=== PATIENT | female | born 1995 | race African-American/Black ===

== ENCOUNTER 2023-05-08 10:48 | Observation (INO) | payer OTHER, MEDICAID, SELFPAY ==
[2023-05-08 11:07] VITALS: BP 128/67; PULSE 91
[2023-05-08 11:57] VITALS: BP 114/59; PULSE 85
[2023-05-08 12:22] LABS: Bilirubin Urine NEGATIVE (NEGATIVE); Blood Urine NEGATIVE (NEGATIVE); Clarity Urine CLEAR (CLEAR); Color Urine YELLOW (YELLOW); Glucose Urine UA NEGATIVE (NEGATIVE); Ketones Urine NEGATIVE (NEGATIVE); Leukocyte Esterase Urine TRACE (NEGATIVE); Nitrite Urine NEGATIVE (NEGATIVE); Protein Urine NEGATIVE (NEG/TRACE); Urobilinogen Urine 0.2 EU/dL (0.2-1.0); pH Urine 5.5 (5.0-9.0)
[2023-05-08 12:25] LABS: Urine Microscopic Indicated YES
[2023-05-08 12:31] LABS: Bacteria Urine NONE SEEN #/HPF (NONE SEEN); RBC Urine NONE SEEN #/HPF (0-2); WBC Urine 0-2 #/HPF (NONE SEEN)
[2023-05-08 12:32] LABS: Mucus Urine SMALL (NONE SEEN); Squamous Epithelial Cell Urine FEW #/LPF (NONE/RARE); Urine Culture Indicated NO
== END 2023-05-08 12:45 | disposition home or self-care (01) ==
PROVIDERS: Admitting Provider Obstetrics & Gynecology; Visit Provider Obstetrics & Gynecology
DX: O16.9 Unspecified maternal hypertension, unspecified trimester (principal); Z3A.00 Weeks of gestation of pregnancy not specified
CPT/HCPCS: 59025; 81001; G0378; G0379

== ENCOUNTER 2023-06-22 21:16 | Observation (INO) | payer MEDICAID, SELFPAY ==
--- OUTSIDE RECORDS SUMMARY | 2023-06-22 21:20 | XMS_ITS | CCD ---
Author Name Unknown Address [address] [place] [address] Organization [facility] Care Team Providers Care Bagman/Woman Name Role Phone FRANCO ., DR TILLMAN Admitting Unavailabl e FRANCO ., DR TILLMAN Attending Unavailabl e FRANCO ., DR TILLMAN Consulting Unavailabl gemma RUBI, DR ROXANN Thakkar Consulting Unavailable JAY JAY BERNSTEIN Attending Unavailable NANETTE GELLER Primary Care Unavailable REJI GELLERERIE Admitting Unavailable Teri Warren MD Primary Care Provider [phone] REJI GELLERERIE Chucky Attending Unavailable FLORO NANETTE Chucky Referring Unavailable FLORO NANETTE L Attending Unavailable FLORO NANETTE L Attending Unavailable FLORO NANETTE L Attending Unavailable FLORO NANETTE L Attending Unavailable FLORO NANETTE L Attending Unavailable FLORO NANETTE L Attending Unavailable Allergies Allergy Classification Reported Allergen(s) Allergy Type Date of Onset Reaction(s) Facility (1 source) CAT DANDER; Translations: [CAT DANDER] Propensity to adverse reactions to drug (disorder) 4 [facility] (1 source) OTHER; Translations: [OTHER] Propensity to adverse reactions (disorder) 8 [facility] Medications Current Medications Medication Drug Class(es) Dates Sig (Normalized) Sig (Original) cephalexin 500 mg oral capsule (1 source) Cephalosporin Antibacterial Start: 05-20-2023 take 1 capsule by mouth in the morning cephalexin (Keflex) 500 MG capsule Indications: Acute cystitis with hematuria Take 1 capsule (500 mg) by mouth in the morning and 1 capsule (500 mg) before bedtime. 14 capsule 0 05/20/2023 Active docusate sodium 100 mg oral capsule (1 source) Start: 03-15-2023 End: 06-13-2023 take 1 capsule by mouth once in the morning docusate sodium (Colace) 100 MG capsule Indications: Encounter for supervision of other normal , second trimester Take 1 capsule (100 mg) by mouth in the morning and 1 capsule (100 mg) before bedtime. 60 capsule 2 03/15/2023 06/13/2023 Active ferrous sulfate 325 mg oral tablet (1 source) Start: 04-16-2023 End: 08-14-2023 take 1 tablet by mouth in the morning ferrous sulfate (FerrouSul) 325 (65 Fe) MG tablet Indications: Iron deficiency Take 1 tablet (325 mg) by mouth in the morning and 1 tablet (325 mg) before bedtime. 60 tablet 3 04/16/2023 08/14/2023 Active Vit-Fe Fumarate-FA ( Plus/Iron) 27-1 MG tablet (1 source) Start: 12-14-2022 End: 12-14-2023 take 1 tablet by mouth in the morning Vit-Fe Fumarate-FA ( Plus/Iron) 27-1 MG tablet Indications: 10 weeks gestation of Take 1 tablet by mouth in the morning. 30 tablet 0 12/14/2022 12/14/2023 Active Problems Problem Classification Problem Date Documented Da te Episodic/Chronic Menstrual disorders (4 sources) Irregular menstruation, unspecified; Translations: [IRREGULAR MENSTRUATION UNSPECIFIED] Onset: 07-12-2022 Chronic Results Test Name Value Interpretation Reference Range Facil ity URINALYSISon 05-20-2023 Bilirubin Ql (U) Negative Normal NEG [facility] Comment on above: Performed By: #### U A #### [facility] ([id number]) [address] [place] [address] BLOOD/HGB SMALL Abnormal NEG [facility] Comment on above: Performed By: #### U A #### [facility] ([id number]) [address] [place] [address] 23281 Color (U) YELLOW Normal YELLOW [facility] Comment on above: Performed By: #### U A #### [facility] ([id number]) [address] [place] [address] [place] [address] Glucose Ql (U) Negative Normal NEG [facility] Comment on above: Performed By: #### U A #### [facility] ([id number]) [address] [place] [address] [place] [address] Ketones Ql (U) Negative Normal NEG [facility] Comment on above: Performed By: #### U A #### [facility] ([id number]) [address] [place] [address] [place] [address] Leukocyte esterase Test strip Ql (U) SMALL Abnormal NEG [facility] Comment on above: Performed By: #### U A #### [facility] ([id number]) [address] [place] [address] Nitrite Ql (U) Negative Normal NEG [facility] Comment on above: Performed By: #### U A #### [facility] ([id number]) [address] [place] [address] 08001 pH (U) 7.0 [pH] Normal 5.0-8.5 [facility] Comment on above: Performed By: #### U A #### [facility] ([id number]) [address] [place] [address] [place] [address] Protein Ql (U) Negative Normal NEG [facility] Comment on above: Performed By: #### U A #### [facility] ([id number]) [address] [place] [address], [place] [address] R.B.CELLS 0 /hpf Normal 0-5 [facility] Comment on above: Performed By: #### U A #### [facility] ([id number]) [address] [place] [address] [place] [address] Specific gravity (U) [Rel density] 1.010 Normal 1.003-1.035 [facility] Comment on above: Performed By: #### U A #### [facility] ([id number]) [address] [place] [address]752 SQUAMOUS EPITHELIUM 3 /hpf Normal 0-5 [facility] Comment on above: Performed By: #### U A #### [facility] ([id number]) [address] [place] [address] TURBIDITY CLEAR Normal CLEAR [facility] Comment on above: Performed By: #### U A #### [facility] ([id number]) [address] [place] [address] 69288 Urobilinogen Qn (U) 0.2 {Blanca'U}/dL Normal <1.1 [facility] Comment on above: Performed By: #### U A #### [facility] ([id number]) [address] [place] [address]159 W.B.CELLS 1 /hpf Normal 0-5 [facility] Comment on above: Performed By: #### U A #### [facility] ([id number]) [address] [place] [address] 97757 URINE CULTUREon 05-20-2023 Bacteria identified Cx Nom (U) SPECIMEN NOTES URINE RECEIVED WITHOUT PRESERVATIVE CULTURE RESULTS 10-50,000 ORGANISMS/mL NORMAL UROGENITAL BROCK URINE RECEIVED WITHOUT PRESERVATIVE-DELAYS IN TRANSPORT MAY AFFECT RESULTS.INTERPRET WITH CAUTION AND CLINICAL CORRELATION IS RECOMMENDED. Normal [facility] Comment on above: Performed By: #### 6 30-4 #### [facility] ([id number]) [address], [address] [place] [address] US OB FOLLOW UP TRANSABDOMIN AL APPROACHon 05-03-2023 US OB FOLLOW UP TRANSABDOMINAL APPROACH FINDINGS: Single live intrauterine heart rate 153 bpm. Cephalic position. Grade 1 posterior placenta. Cervical length 4.3 cm. DIANA 14.56 cm. Estimated sonographic gestational age 30 weeks, 2 days. Gestational age by dates 30 weeks, 2 days. Estimated sonographic date of delivery July 10, 2023. Estimated weight 1549 g (36.7% by LMP percentile). BPD 7.60 cm. HC 27.78 cm. AC 26.10 cm. FL 5.78 cm. IMPRESSION: Impression: Single live intrauterine with estimated sonographic gestational age 30 weeks, 2 days. Estimated weight 1549 g. ELECTRONICALLY SIGNED BY: Jj Rodriguez MD Normal Not Available US PELVIS AND TRANSVAGon US PELVIS AND TRANSVAG EXAMINATION: US PELVIS AND TRANSVAG HISTORY: Intermenstrual bleeding - irregular COMPARISON: No relevant comparison available. TECHNIQUE: Transabdominal and transvaginal sonographic examination. FINDINGS: UTERUS: Normal size and appearance. Uterus size: 6.6 x 3.5 x 4.5 cm ENDOMETRIUM: Normal homogeneous appearance. Endometrial thickness: 4 mm RIGHT OVARY: Normal size and appearance. Duplex Doppler demonstrates normal waveform and flow; resistive index 0.7. Ovary size: 2.6 x 1.4 x 4.1 cm LEFT OVARY: Normal size and appearance. Duplex Doppler demonstrates normal waveform and flow; resistive index 0.6. Ovary size: 3.8 x 1.9 x 1.7 cm CUL-DE-SAC: Unremarkable. No significant free fluid. BLADDER: Unremarkable. OTHER: None. IMPRESSION: 1. Normal pelvic ultrasound. No specific findings to account for patient's symptoms. Electronically authenticated by: ROXANN RUBI Date: 2022-07-12 11:04 Normal [facility] Encounters Encounter Date Encounter Type Care Provider Facility Start: 06-14-2023 End: 06-15-2023 ambulatory NANETTE L FLORO Not Available Start: 06-07-2023 End: 06-08-2023 ambulatory NANETTE L FLORO Not Available Start: 06-07-2023 Bamboo flowsheet Nanette L Adonay ro CN Work Phone: [facility] Start: 06-07-2023 Bamboo flowsheet Nanette L Adonay ro CN Work Phone: [facility] Start: 05-31-2023 End: 06-01-2023 ambulatory NANETTE L FLORO Not Available Start: 05-20-2023 End: 05-20-2023 ambulatory JAY JAY Vázquez SAVTORI [facility] Start: 05-17-2023 End: 05-18-2023 ambulatory NANETTE Locke FLORO Not Available Start: 05-03-2023 End: 05-04-2023 ambulatory NANETTE L FLORO Not Available Start: 04-12-2023 End: 04-13-2023 ambulatory NANETTE L FLORO Not Available Start: 03-15-2023 End: 03-16-2023 ambulatory NANETTE L FLORO Not Available Start: 07-12-2022 End: 07-13-[address] LAYNE GAMEZ . Facility: Payers Date Payer Category Payer Medicaid [id number] 2022 Medicaid [employer] BCBS [facility] AN[employer] BCBS [place]ICA[place] [id number] 2022-Present [address] [place] [address] [id number] 2021 Private Health Insurance [id number] 2021 Private Health Insurance [facility] [id number] 2021-Present [address] [address] [place] [address] [id number]. [id number] 1996 Unknown [id number] 2.16.840.1.837956.3.579.2. 593 1996 Unknown [id number] 2.16.840.1.919709.3.579.2. 1286 1996 Unknown [id number] 2.16.840.1.873881.3.579.2. 1259 1996 Unknown [id number] 2.16.840.1.962503.3.579.2. 1259 1996 Unknown [id number] 2.16.840.1.464478.3.579.2. 1259 1996 Unknown [id number] 2.16.840.1.282166.3.579.2. 1259 1996 Unknown [id number] 2.16.840.1.493382.3.579.2. 1259 1996 Unknown [id number] 2.16.840.1.109084.3.579.2. 1259 1996 Unknown [id number] 2.16.840.1.614739.3.579.2. 1259 1996 Unknown [id number] 2.16.840.1.281025.3.579.2. 1259 Social History Date Type Detail Facility [facility]: [facility] Start: 11-21-2022 Tobacco use and exposure Smokeless t obacco non-user [facility] Start: 11-22-2022 Alcohol intake Lifetime non-d hardeep (finding) [facility] Start: 11-22-2022 History of Social function [facility] Start: 11-22-2022 Tobacco use panel [facility] Start: 10-17-2022 [facility] Start: 1996 Sex Assigned At Female [facility] Start: 11-20-2022 Gender identity Identifies as female gender (finding) [facility] Start: 11-20-2022 Sexual orientation Heterosexual (fin ding) [facility] Summary Purpose Family History No Family History Records FoundNo Family History Records FoundNo Family History Records Found Advance Directives No Advanced Directives Records FoundNo Advanced Directives Records FoundNo Advanced Directives Records Found Additional Source Comments INFORMATION SOURCE (unrecogn ized section and content) DATE CREATED AUTHOR 07/17/[address] [facility] DATE CREATED AUTHOR AUTHOR'S ORGANIZ ATION 05/22/2023 [facility] DATE CREATED AUTHOR AUTHOR'S ORGANIZ ATION 06/18/2023 [facility] Special[facility] EPIC Care Teams (unrecognized sec tion and content) Bagman/Woman Relationship Specialty Start Date End Date Teri Warren MD [address] [place] [address], [address] PCP - General Internal Medicine 04/12/23 FOR RECORDS PERTAINING TO PATIENTS WHO ARE OR HAVE BEEN ENROLLED IN A CHEMICAL DEPENDENCY/SUBSTANCEABUSE PROGRAM, SOME INFORMATION MAY BE OMITTED. This clinical summary was aggregated from multiple sources. Caution should be exercised in using it in the provision of clinical care. This summary normalizes information from multiple sources, and as a consequence, information in this document may materially change the coding, format and clinical context of patient data. In addition, data may be omitted in some cases. CLINICAL DECISIONS SHOULD BE BASED ON THE PRIMARY CLINICAL RECORDS. [facility]. provides no warranty or guarantee of the accuracy or completeness of information in this document.
[2023-06-22 21:58] LABS: Bilirubin Urine NEGATIVE (NEGATIVE); Blood Urine TRACE-I (NEGATIVE); Clarity Urine CLEAR (CLEAR); Color Urine LT. YELLOW (YELLOW); Glucose Urine UA NEGATIVE (NEGATIVE); Ketones Urine TRACE mg/dL (NEGATIVE); Leukocyte Esterase Urine MODERATE (NEGATIVE); Nitrite Urine NEGATIVE (NEGATIVE); Protein Urine TRACE mg/dL (NEG/TRACE); Specific Gravity Urine >=1.030 (1.005-1.025); pH Urine 5.5 (5.0-9.0)
[2023-06-22 22:03] LABS: Urine Microscopic Indicated YES
[2023-06-22 22:04] VITALS: TEMP 36.3
[2023-06-22 22:05] VITALS: BP 134/65; PULSE 88
[2023-06-22 22:05] LABS: Amnisure NEGATIVE (NEGATIVE)
[2023-06-22 22:08] LABS: Bacteria Urine TRACE #/HPF (NONE SEEN); Cast Seen? NONE SEEN #/LPF (NONE SEEN); Crystals Seen? None Seen #/HPF (None Seen); Mucus Urine TRACE (NONE SEEN); RBC Urine 0-2 #/HPF (0-2); Squamous Epithelial Cell Urine FEW #/LPF (NONE/RARE)
== END 2023-06-22 23:55 | disposition home or self-care (01) ==
PROVIDERS: Midwife; Admitting Provider Obstetrics & Gynecology; Visit Provider Obstetrics & Gynecology
DX: Z03.71 Encounter for suspected problem with amniotic cavity and membrane ruled out (principal); Z3A.37 37 weeks gestation of pregnancy
CPT/HCPCS: 59025; 81001; 84112; G0378; G0379

== ENCOUNTER 2023-06-26 21:16 | Inpatient (IN) | payer MEDICAID, SELFPAY ==
--- OUTSIDE RECORDS SUMMARY | 2023-06-26 21:20 | XMS_ITS | CCD ---
Author Name Unknown Address [address] [place] [address] Organization [facility] Care Team Providers Care Forestry Instructor Name Role Phone FRANCO ., DR TILLMAN Admitting Unavailabl e FRANCO ., DR TILLMAN Attending Unavailabl e FRANCO ., DR TILLMAN Consulting Unavailabl e ELICIA, DR ROXANN Thakkar Consulting Unavailable JAY JAY BERNSTEIN Attending Unavailable FLORO NANETTE Primary Care Unavailable ADELINAO NANETTE Admitting Unavailable Teri Warren MD Primary Care Provider ADELINAO NANETTE Chucky Attending Unavailable FLORO NANETTE L Referring Unavailable FLORO NANETTE L Attending Unavailable FLORO, NANETTE L Attending Unavailable FLORO, NANETTE L Attending Unavailable FLORO, NANETTE L Attending Unavailable FLORO, NANETTE L Attending Unavailable FLORO, NANETTE L Attending Unavailable FLORO, NANETTE L Attending Unavailable Allergies Allergy Classification [...] 05-20-2023 Bilirubin Ql (U) Negative Normal NEG [facility] Comment on above: Performed By: #### U A #### [facility] ([id number]) [address] [place] [address] BLOOD/HGB SMALL Abnormal NEG [facility] Comment on above: Performed By: #### U A #### [facility] ([id number]) [address] [place] [address]372 Color (U) YELLOW Normal YELLOW [facility] Comment on above: Performed By: #### U A #### [facility] ([id number]) [address] [place] [address] [place] [address] Glucose Ql (U) Negative Normal NEG [facility] Comment on above: Performed By: #### U A #### [facility] ([id number]) [address] [place] [address]13[address] Ketones Ql (U) Negative Normal NEG [facility] Comment on above: Performed By: #### U A #### [facility] ([id number]) [address] [place] [address] [place] [address] Leukocyte esterase Test strip Ql (U) SMALL Abnormal NEG [facility] Comment on above: Performed By: #### U A #### [facility] ([id number]) [address] [place] [address] Nitrite Ql (U) Negative Normal NEG [facility] Comment on above: Performed By: #### U A #### [facility] ([id number]) [address] [place] [address] 91392 pH (U) 7.0 [pH] Normal 5.0-8.5 [facility] Comment on above: Performed By: #### U A #### [facility] ([id number]) [address] [place] [address] Protein Ql (U) Negative Normal NEG [facility] Comment on above: Performed By: #### U A #### [facility] ([id number]) [address] [place] [address] [place] [address] R.B.CELLS 0 /hpf Normal 0-5 [facility] Comment on above: Performed By: #### U A #### [facility] ([id number]) [address] [place] [address] Specific gravity (U) [Rel density] 1.010 Normal 1.003-1.035 [facility] Comment on above: Performed By: #### U A #### [facility] ([id number]) [address] [place] [address] SQUAMOUS EPITHELIUM 3 /hpf Normal 0-5 [facility] Comment on above: Performed By: #### U A #### [facility] ([id number]) [address] [place] [address] TURBIDITY CLEAR Normal CLEAR [facility] Comment on above: Performed By: #### U A #### [facility] ([id number]) [address] [place] [address]35 Urobilinogen Qn (U) 0.2 {Blanca'U}/dL Normal <1.1 [facility] Comment on above: Performed By: #### U A #### [facility] ([id number]) [address] [place] [address] W.B.CELLS 1 /hpf Normal 0-5 [facility] Comment on above: Performed By: #### U A #### [facility] ([id number]) [address] [place] [address] URINE CULTUREon 05-20-2023 Bacteria identified Cx Nom (U) SPECIMEN NOTES URINE RECEIVED WITHOUT PRESERVATIVE CULTURE RESULTS 10-50,000 ORGANISMS/mL NORMAL UROGENITAL BROCK URINE RECEIVED WITHOUT PRESERVATIVE-DELAYS IN TRANSPORT MAY AFFECT RESULTS.INTERPRET WITH CAUTION AND CLINICAL CORRELATION IS RECOMMENDED. Normal [facility] Comment on above: Performed By: #### 6 30-4 #### [facility] ([id number]) [address] [place] [address], [address] [place] [address] US OB FOLLOW UP TRANSABDOMIN AL APPROACHon [...] by: ROXANN RUBI Date: 2022-07-12 11:04 Normal [facility] Encounters Encounter Date Encounter Type Care Provider Facility Start: 06-21-2023 End: 06-22-2023 ambulatory NANETTE L FLORO Not Available Start: 06-14-2023 End: 06-15-2023 ambulatory NANETTE L FLORO Not Available Start: 06-07-2023 End: 06-08-2023 ambulatory NANETTE L FLORO Not Available Start: 06-07-2023 Bamboo flowsheet Nanette L Adonay ro [facility] Work Phone: [facility] Start: 06-07-2023 Bamboo flowsheet Nanette L Adonay ro [facility] Work Phone: [facility] Start: 05-31-2023 End: 06-01-2023 ambulatory NANETTE L FLORO Not Available Start: 05-20-2023 End: 05-20-2023 [facility] Start: 05-17-2023 End: 05-18-2023 ambulatory NANETTE L FLORO Not Available Start: 05-03-2023 End: 05-04-2023 ambulatory NANETTE L FLORO Not Available Start: 04-12-2023 End: 04-13-2023 ambulatory NANETTE L FLORO Not Available Start: 03-15-2023 End: 03-16-2023 ambulatory NANETTE L FLORO Not Available Start: 07-12-2022 End: 07-13-[address] LAYNE GAMEZ . Facility: Payers Date Payer Category Payer Medicaid [id number] 2022 Medicaid [facility] AN[employer] BCBS [place] [id number] 2022-Present [address] [place] [address] [id number] 2021 Private Health Insurance [id number] 2021 Private Health Insurance [facility] [id number] 2021-Present [address] [address] [place] [address] [id number]. [id number] 1996 Unknown [id number] 2.16.840.1.416395.3.579.2. 593 1996 Unknown [id number] 2.16.840.1.579262.3.579.2. 1286 1996 Unknown [id number] 2.16.840.1.002346.3.579.2. 1259 1996 Unknown [id number] 2.16.840.1.883908.3.579.2. 1259 1996 Unknown [id number] 2.16.840.1.090761.3.579.2. 1259 1996 Unknown [id number] 2.16.840.1.388393.3.579.2. 1259 1996 Unknown [id number] 2.16.840.1.775745.3.579.2. 1259 1996 Unknown [id number] 2.16.840.1.255341.3.579.2. 1259 1996 Unknown [id number] 2.16.840.1.906592.3.579.2. 1259 1996 Unknown [id number] 2.16.840.1.414375.3.579.2. 1259 1996 Unknown [id number] 2.16.840.1.313662.3.579.2. 1259 Social History Date Type Detail Facility Start: 11-21-2022 Tobacco smoking stat [facility] Never smoked tobacco [facility] Start: 11-21-2022 [...] and content) DATE CREATED AUTHOR [facility]17/2022 [facility] DATE CREATED AUTHOR AUTHOR'S ORGANIZ ATION 05/22/2023 [facility] DATE CREATED AUTHOR AUTHOR'S ORGANIZ ATION 06/25/2023 [facility] d[facility] Specialists EPIC Care Teams (unrecognized sec tion and content) Forestry Instructor Relationship Specialty Start Date End Date Teri Warren MD [address] [place] [address], [address] PCP - General Internal Medicine 04/12/23 [...] BE BASED ON THE PRIMARY CLINICAL RECORDS. [employer] provides no warranty or guarantee of the accuracy or completeness of information in this document.
[2023-06-26 21:40] VITALS: BP 128/71; PULSE 89; RESP 18; TEMP 36.7
[2023-06-26 21:54] LABS: Bilirubin Urine NEGATIVE (NEGATIVE); Blood Urine NEGATIVE (NEGATIVE); Clarity Urine CLEAR (CLEAR); Color Urine LT. YELLOW (YELLOW); Glucose Urine UA NEGATIVE (NEGATIVE); Ketones Urine TRACE mg/dL (NEGATIVE); Leukocyte Esterase Urine TRACE (NEGATIVE); Nitrite Urine NEGATIVE (NEGATIVE); Protein Urine NEGATIVE (NEG/TRACE); Urobilinogen Urine 0.2 EU/dL (0.2-1.0)
[2023-06-26 22:02] LABS: Urine Microscopic Indicated YES
[2023-06-26 22:18] LABS: WBC Urine 0-2 #/HPF (NONE SEEN)
[2023-06-26 22:19] LABS: Bacteria Urine NONE SEEN #/HPF (NONE SEEN); Cast Seen? NONE SEEN #/LPF (NONE SEEN); Crystals Seen? None Seen #/HPF (None Seen); Mucus Urine NONE SEEN (NONE SEEN); RBC Urine NONE SEEN #/HPF (0-2); Squamous Epithelial Cell Urine RARE #/LPF (NONE/RARE)
[2023-06-26] MEDS: LACTATED RINGER'S SOLUTION 1,000 ML 1000 ML IV (22:43)
[2023-06-27] VITALS (15 sets, daily range): BP systolic 78–134; BP diastolic 43–76; PULSE 67–96; RESP 16–20; TEMP 36.2–36.3
--- OUTSIDE RECORDS SUMMARY | 2023-06-27 02:58 | XMS_ITS | CCD ---
Author Name Unknown Address [address] [place] [address] Organization [facility] Care Team Providers Care Entry Level Account Manager Name Role Phone FRANCO ., DR TILLMAN [...] 05-20-2023 Bilirubin Ql (U) Negative Normal NEG [facility] Comment on above: Performed By: #### U A #### [facility] ([id number]) [address] [place] [address] BLOOD/HGB SMALL Abnormal NEG [facility] Comment on above: Performed By: #### U A #### [facility] ([id number]) [address] [place] [address] Color (U) YELLOW Normal YELLOW [facility] Comment on above: Performed By: #### U A #### [facility] ([id number]) [address] [place] [address] [place] [address] Glucose Ql (U) Negative Normal NEG [facility] Comment on above: Performed By: #### U A #### [facility] ([id number]) [address] [place] [address] Ketones Ql (U) Negative Normal NEG [facility] Comment on above: Performed By: #### U A #### [facility] ([id number]) [address] [place] [address] [place] [address] Leukocyte esterase Test strip Ql (U) SMALL Abnormal NEG [facility] Comment on above: Performed By: #### U A #### [facility] ([id number]) [address] [place] [address] Nitrite Ql (U) Negative Normal NEG [facility] Comment on above: Performed By: #### U A #### [facility] ([id number]) [address] [place] [address] pH (U) 7.0 [pH] Normal 5.0-8.5 [facility] Comment on above: Performed By: #### U A #### [facility] ([id number]) [address] [place] [address] Protein Ql (U) Negative Normal NEG [facility] Comment on above: Performed By: #### U A #### [facility] ([id number]) [address] [place] [address] [place] [address] R.B.CELLS 0 /hpf Normal 0-5 [facility] Comment on above: Performed By: #### U A #### [facility] ([id number]) [address] [place] [address] Specific gravity (U) [Rel density] 1.010 Normal 1.003-1.035 [facility] Comment on above: Performed By: #### U A #### [facility] ([id number]) [address] [place] [address]53 SQUAMOUS EPITHELIUM 3 /hpf Normal 0-5 [facility] Comment on above: Performed By: #### U A #### [facility] ([id number]) [address] [place] [address] TURBIDITY CLEAR Normal CLEAR [facility] Comment on above: Performed By: #### U A #### [facility] ([id number]) [address] [place] [address] Urobilinogen Qn (U) 0.2 {Blanca'U}/dL Normal <1.1 [facility] Comment on above: Performed By: #### U A #### [facility] ([id number]) [address] [place] [address] W.B.CELLS 1 /hpf Normal 0-5 [facility] Comment on above: Performed By: #### U A #### [facility] ([id number]) [address] [place] [address] URINE CULTUREon 05-20-2023 Bacteria identified Cx Nom (U) SPECIMEN NOTES URINE RECEIVED WITHOUT PRESERVATIVE CULTURE RESULTS 10-50,000 ORGANISMS/mL NORMAL UROGENITAL BROCK URINE RECEIVED WITHOUT PRESERVATIVE-DELAYS IN TRANSPORT MAY AFFECT RESULTS.INTERPRET WITH CAUTION AND CLINICAL CORRELATION IS RECOMMENDED. Normal [facility] Comment on above: Performed By: #### 6 30-4 #### [facility] ([id number]) [address] [place] [address], [address] [place] [address] US OB FOLLOW UP TRANSABDOMIN AL APPROACHon [...] by: ROXANN RUBI Date: 2022-07-12 11:04 Normal [facility] Encounters Encounter Date Encounter Type Care Provider Facility Start: 06-21-2023 End: 06-22-2023 ambulatory NANETTE L FLORO Not Available Start: 06-14-2023 End: 06-15-2023 ambulatory NANETTE L FLORO Not Available Start: 06-07-2023 End: 06-08-2023 ambulatory NANETTE L FLORO Not Available Start: 06-07-2023 Bamboo flowsheet Nanette L Adonay ro [facility] Work Phone: [facility] Start: 06-07-2023 Bamboo flowsheet Nanette L Adonay ro [facility] Work Phone: [facility] Start: 05-31-2023 End: 06-01-2023 ambulatory NANETTE L FLORO Not Available Start: 05-20-2023 End: 05-20-2023 [facility] Start: 05-17-2023 End: 05-18-2023 ambulatory NANETTE L FLORO Not Available Start: 05-03-2023 End: 05-04-2023 ambulatory NANETTE L FLORO Not Available Start: 04-12-2023 End: 04-13-2023 ambulatory NANETTE L FLORO Not Available Start: 03-15-2023 End: 03-16-2023 ambulatory NANETTE L FLORO Not Available Start: 07-12-2022 End: 07-13-[address] LAYNE GAMEZ . Facility: Payers Date Payer Category Payer Medicaid [id number] 2022 Medicaid [facility] BC[employer] [place] [id number] 2022-Present [address] [place] [address] [id number] 2021 Private Health Insurance [id number] 2021 Private Health Insurance [facility] [id number] 2021-Present [address] [address] [place] [address] [id number] 1996 Unknown [id number]. 593 1996 Unknown [id number] 2.16.840.1.224991.3.579.2. 1286 1996 Unknown [id number] 2.16.840.1.377649.3.579.2. 1259 1996 Unknown [id number] 2.16.840.1.687268.3.579.2. 1259 1996 Unknown [id number] 2.16.840.1.211871.3.579.2. 1259 1996 Unknown [id number] 2.16.840.1.740555.3.579.2. 1259 1996 Unknown [id number] 2.16.840.1.987806.3.579.2. 1259 1996 Unknown [id number] 2.16.840.1.713657.3.579.2. 1259 1996 Unknown [id number] 2.16.840.1.700490.3.579.2. 1259 1996 Unknown [id number] 2.16.840.1.358198.3.579.2. 1259 1996 Unknown [id number] 2.16.840.1.110919.3.579.2. 1259 Social History Date Type Detail Facility Start: 11-21-2022 Tobacco smoking stat [facility] Never smoked tobacco [facility] Start: 11-21-2022 [...] and content) DATE CREATED AUTHOR [facility]/17/2022 [facility] DATE CREATED AUTHOR AUTHOR'S ORGANIZ ATION 05/22/2023 [facility] DATE CREATED AUTHOR AUTHOR'S ORGANIZ ATION 06/25/2023 [facility] [employer] Care Teams (unrecognized sec tion and content) Entry Level Account Manager Relationship Specialty Start Date End Date Teri Warren MD [address] [place] [address], [id number] PCP - General Internal Medicine 04/12/23 [...] BE BASED ON THE PRIMARY CLINICAL RECORDS. [employer] provides no warranty or guarantee of the accuracy or completeness of information in this document.
[2023-06-27 09:09] LABS: Hematocrit 34.3 % (36.0-48.0); Hemoglobin 10.2 g/dL (12.0-16.0); Mean Corpuscular HGB Conc 29.7 g/dL (29.9-35.2); Mean Corpuscular Hemoglobin 21.6 pg (26.7-34.0); Mean Corpuscular Volume 72.7 fL (81.0-99.0); Mean Platelet Volume 11.2 fL (9.5-13.5); Platelet Count 221 10^3/uL (150-450); Red Blood Count 4.72 10^6/uL (4.20-5.40); Red Cell Distribution Width 14.9 % (11.0-15.0); White Blood Count 10.5 10^3/uL (4.0-11.0)
[2023-06-27 10:13] LABS: Amphetamine Screen Urine NEGATIVE (NEGATIVE); Barbiturates Screen Urine NEGATIVE (NEGATIVE); Benzodiazepines Screen Urine NEGATIVE (NEGATIVE); Cannabinoid Screen Urine NEGATIVE (NEGATIVE); Cocaine Screen Urine NEGATIVE (NEGATIVE); Methadone Screen Urine NEGATIVE (NEGATIVE); Methamphetamines Screen Urine NEGATIVE (NEGATIVE); Opiate Screen Urine NEGATIVE (NEGATIVE); Phencyclidine Screen Urine NEGATIVE (NEGATIVE); Tricyclic Antidepressant Urine NEGATIVE (NEGATIVE)
[2023-06-27 10:14] LABS: Buprenorphine Screen Urine NEGATIVE (NEGATIVE); Oxycodone Screen Urine NEGATIVE (NEGATIVE)
--- NOTE | 2023-06-27 10:27 | PM.OBHP ---
OB - H&P: HPI History of Present Illness Chief complaint: contraction : 2 Para: 1 Gestational age based on last menstrual period: 38.1 History of Present Dating criteria: LMP confirmed by 1st trimester US care: good care Ultrasounds: normal 1st trimester US and normal mid trimester US Medical complications OB: none Labs Blood type: B (+) positive Rubella: immune RPR/VDLR: nonreactive GBS status: negative HBsAG: negative Review of Systems ROS Status of ROS: 10 or more systems reviewed and unremarkable except as noted in history and below PFSH PFSH Family History (Updated 06/27/23 @ 03:27 by Trey Estevez) Grandmother Family history of cancer Father Family history of CHF (congestive heart failure) Social History (Updated 06/27/23 @ 03:29 by Trey Estevez) Within the past year, how often did you have a drink containing alcohol: never Within the past year, how often did you have six or more drinks on one occasion: never Score interpretation: A score less than 3 is consistent with normal alcohol consumption. Smoking status: Never smoker Non-prescribed substance use: denies use Highest level of school completed/degree received: some college, no degree Little interest or pleasure in doing things: not at all Feeling down, depressed, or hopeless: not at all Feel stressed/tense/nervous/anxious/difficulty sleeping: not at all Do you think of yourself as: straight/heterosexual Gender Identity: female Meds Home Medications and Allergies Home Medications Medication Instructions Recorded Confirmed Type vitamin with calcium tab 06/27/23 History no.72-iron 27 mg-folic acid 1 mg tablet (M- Plus) Allergies Allergy/AdvReac Type Severity Reaction Status Date / Time No Known Drug Allergies Allergy Verified 06/27/23 03:26 Exam Constitutional Vital Signs, click to edit/add: Last Vital Signs Temp 98.1 F 06/26/23 21:40 Pulse 81 06/27/23 08:42 Resp 18 06/26/23 21:40 BP 111/64 06/27/23 08:42 Documenting provider has reviewed patient's vital signs: yes Common normals: no apparent distress HENMT Common normals: normocephalic Eye Common normals: EOMs intact bilaterally General eye: normal appearance of both eyes Neck & C-Spine Common normals: full ROM Lymph Lymphatic: no lymphadenopathy noted Chest Common normals: inspection of chest normal Respiratory Common normals: normal respiratory effort Effort & inspection: able to speak in complete sentences Cardio Common normals: regular rate and regular rhythm Rate: regular rate Rhythm: regular rhythm GI Common normals: Normal to inspection, nondistended, normoactive bowel sounds present Inspection: normal to inspection Auscultation: normoactive bowel sounds Common normals: no CVA tenderness Back & Pelvis Common normals: no CVA tenderness Extremity Common normals: normal to inspection and full ROM Neuro [place] Coma Scale: document GCS findings Common normals: oriented x3 Sensorium/orientation: awake, alert, oriented to person, oriented to place and oriented to time Psych Appearance: grossly normal and well kempt Attitude: calm Thought process: normal thought process Results Labs Labs: Short CBC 06/26/23 Range/Units 22:35 WBC 10.5 (4.0-11.0) 10^3/uL Hgb 10.2 L (12.0-16.0) g/dL Hct 34.3 L (36.0-48.0) % Plt Count 221 (150-450) 10^3/uL Urine 06/26/23 Range/Units 21:30 Urine Color Lt. yellow (YELLOW) Urine Clarity Clear (CLEAR) Urine pH 6.0 (5.0-9.0) Ur Specific [place] 1.010 (1.005-1.025) Urine Protein Negative (NEG/TRACE) mg/dL Urine Glucose (UA) Negative (NEGATIVE) mg/dL OB - A/P Assessment and Plan (1) Term : Plan admit for spontaneous labor and advanced cervical dilation.
[2023-06-27] MEDS: OXYTOCIN/0.9 % SODIUM CHLORIDE 10 UNITS/500 ML PLAST..BAG 6 UNIT IV (10:38)
[2023-06-27] MEDS: LACTATED RINGER'S SOLUTION 1,000 ML 125 ML IV (10:39)
--- NOTE | 2023-06-27 10:45 | P.EN_ITS ---
Event Note Event Note: patient came in last evening for contractions and SVE was 3/-2 7:00 am RN reports SVE is 5-6/-2 Cervical change noted, patient admitted. 0922 to room to assess patient. SVE 6-/-2 AROM performed with sterile amni hook with return of small amount of clear, odorless fluid. heart tones stable bef ore, during and after ROM. Patient tolerated procedure well.
--- NOTE | 2023-06-27 13:32 | PM.OBPRCVD ---
Procedure Procedure: Intrapartal events: None Induction method: none Delivery augmentation: rupture of membranes and pitocin Delivery monitor: external FHT and external uterine Route of delivery: Episiotomy Description: none L&D Laceration Description: none Estimated blood loss (mL): 350 Anesthesia type: None Disposition: no change Delivery date: 06/27/23 Gender: male presentation: vertex Placental delivery description: Spontaneous cord description: 3 Vessels and Around Body x1 cord description comment: CAN x1 loose and reduced at delivery heart rate - 1 minute: 100 bpm or Greater respiratory effort - 1 minute: Spontaneous/Strong Cry muscle tone - 1 minute: Active Movement reflex response - 1 minute: Prompt Response color - 1 minute: Bluish Hands or Feet total score - 1 minute: 9 heart rate - 5 minute: 100 bpm or Greater respiratory effort - 5 minute: Spontaneous/Strong Cry muscle tone - 5 minute: Active Movement reflex response - 5 minute: Prompt Response color - 5 minute: Bluish Hands or Feet total score - 5 minute: 9
[2023-06-27] MEDS: KETOROLAC TROMETHAMINE 30 MG/ML VIAL IVP (13:40)
[2023-06-28 01:48] VITALS: BP 109/64; PULSE 91; RESP 16; TEMP 36.5
[2023-06-28 05:33] VITALS: BP 114/61; PULSE 70; RESP 16; TEMP 36.3
[2023-06-28 06:01] LABS: Basophils Percent Auto 0.2 % (0.2-2.0); Eosinophils Absolute Auto 0.2 10^3/uL (0.0-0.7); Eosinophils Percent Auto 1.3 % (0.9-7.0); Hematocrit 31.5 % (36.0-48.0); Hemoglobin 9.5 g/dL (12.0-16.0); Immature Granulocytes Abs Auto 0.07 10^3/uL (0.00-0.03); Immature Granulocytes Pct Auto 0.5 % (0.0-0.5); Lymphocytes Absolute Auto 2.6 10^3/uL (1.2-3.8); Lymphocytes Percent Auto 19.5 % (20.5-60.0); Mean Corpuscular HGB Conc 30.2 g/dL (29.9-35.2); Mean Corpuscular Hemoglobin 21.4 pg (26.7-34.0); Mean Corpuscular Volume 70.9 fL (81.0-99.0); Mean Platelet Volume 10.3 fL (9.5-13.5); Monocytes Absolute Auto 1.1 10^3/uL (0.3-0.8); Monocytes Percent Auto 7.9 % (1.7-12.0); Neutrophils Absolute Auto 9.6 10^3/uL (1.4-6.5); Neutrophils Percent Auto 70.6 % (43.0-75.0); Platelet Count 209 10^3/uL (150-450); Red Blood Count 4.44 10^6/uL (4.20-5.40); Red Cell Distribution Width 14.6 % (11.0-15.0); White Blood Count 13.5 10^3/uL (4.0-11.0)
[2023-06-28 08:14] VITALS: BP 115/62; PULSE 60; RESP 18; TEMP 36.7
[2023-06-28] MEDS: DOCUSATE SODIUM 100 MG CAPSULE PO (08:16)
--- NOTE | 2023-06-28 08:27 | PM.OBPN ---
OB - PN: Subj Subjective Patient comments: no complaints [place] status: doing well feeding status: exclusively Exam Constitutional Vital Signs, click to edit/add: Last Vital Signs Temp 97.3 F L 06/28/23 05:33 Pulse 60 06/28/23 08:14 Resp 16 06/28/23 05:33 BP 115/62 06/28/23 08:14 O2 Del Method Room Air 06/27/23 14:20 Documenting provider has reviewed patient's vital signs: yes Common normals: no apparent distress and oriented x3 General appearance: cooperative Orientation/consciousness: Yes awake, Yes oriented to person, Yes oriented to place and Yes oriented to time HENMT Common normals: normocephalic Eye Common normals: EOMs intact bilaterally Neck & C-Spine Common normals: full ROM General: normal visual inspection Lymph Lymphatic: no lymphadenopathy noted Chest Common normals: inspection of chest normal Respiratory Common normals: normal respiratory effort, no retractions, no use of accessory muscles and clear to auscultation bilaterally Auscultation: clear to auscultation bilaterally Cardio Common normals: regular rate, regular rhythm and no murmurs Rate: regular rate Rhythm: regular rhythm GI Common normals: Normal to inspection, nondistended, normoactive bowel sounds present Palpation: soft Common normals: no CVA tenderness Back & Pelvis Common normals: no CVA tenderness Thoracic spine/upper back: normal to inspection Lumbar spine/lower back: normal to inspection Extremity Common normals: normal to inspection General: normal exam except as noted Neuro Common normals: oriented x3 Sensorium/orientation: awake, alert, oriented to person, oriented to place and oriented to time Psych Common normals: mental status grossly normal, thought process normal and cooperative Attitude: calm Thought process: normal thought process Results Labs Labs: Short CBC 06/26/23 06/28/23 Range/Units 22:35 05:31 WBC 10.5 13.5 H (4.0-11.0) 10^3/uL Hgb 10.2 L 9.5 L (12.0-16.0) g/dL Hct 34.3 L 31.5 L (36.0-48.0) % Plt Count 221 209 (150-450) 10^3/uL OB - PN: A/P Assessment and Plan (1) Term : Plan - Vaginal Delivery day: 1 Plan: discharge home Time Spent with Patient Time: Total time spent is greater than 50% in coordination of care (as documented) at patient's floor/unit and/or counseling patient: Total time spent with greater than 50% in coordination of care (as documented) at patient's floor/unit and/or counseling patient: less than 15 minutes
[2023-06-28] MEDS: BENZOCAINE/MENTHOL 85 GRAM SPRAY BOTTLE 1 APPLIC TOPICAL (16:34)
[2023-06-28] MEDS: GLYCERIN/WITCH HAZEL PADS 1 PAD TOPICAL (16:35)
== END 2023-06-28 21:10 | disposition home or self-care (01) | DRG 560 ==
PROVIDERS: Admitting Provider Midwife; Visit Provider Midwife
DX: O80 Encounter for full-term uncomplicated delivery (principal); Z3A.38 38 weeks gestation of pregnancy; Z37.0 Single live birth
CPT/HCPCS: 36415; 59050; 59410; 80307; 81001; 85025; 85027; 86850; 86900; 86901; 88307; 96374; 96375; G0378; J1885